=== PATIENT | male | born 1940 | race Caucasian/White ===

== ENCOUNTER → 2017-09-09 15:25 | Outpatient (CLI) | payer MEDICARE, OTHER, SELFPAY ==
--- NOTE | 2017-09-09 15:10 | LES_PTH ---
PATIENT: CRISTINO JONAS LOC: [facility] U#:[id number] AGE/SX: 84/M ROOM: RE09/09/[address]: Dr. Georges Agustin DO : 1940 BED: DIS: SPEC #: [id number] RECD: 09/09/17 17:28 STATUS: ABIMBOLA BRUCE #: [id number] ELIEZER: 09/09/17 15:[address]: Georges Agustin DEPT: SURGICAL PATHOLOGY RECD BY: Helder Paez Tissues: Skin, NOS Procedures: Surgery Specimen Level IV HEADER OPERATION: Punch biopsy atypical nevus PRE-OP DIAGNOSIS: Changing nevus TISSUE SUBMITTED: 3 mm punch atypical nevus MICROSCOPIC DIAGNOSIS Atypical nevus, punch biopsy: Consistent with seborrheic keratosis with focal features of cutaneous horn. Negative for malignancy. See comment. DOC:darion 09/11/17 COMMENT Clinical correlation and appropriate follow up are necessary. MICROSCOPIC DESCRIPTION Slides are reviewed. GROSS DESCRIPTION Received is one container labeled with the patient's name and not further designated. The specimen consists of a piece of hui-white skin measuring 0.3 x 0.3 x 0.1 cm. The specimen is totally submitted in one cassette. / SJ:rg 09/10/17 TC:1 CPT: 33217
== END ==
PROVIDERS: Family Provider Family Medicine; PCP Family Medicine; Visit Provider Family Medicine
DX: D22.9 Melanocytic nevi, unspecified (principal)
CPT/HCPCS: 88305

== ENCOUNTER → 2017-10-03 09:45 | Outpatient (CLI) | payer MEDICARE, OTHER, SELFPAY ==
[2017-10-03 12:16] LABS: Absolute Lymphocyte Count 1.26 X10^3/ul (0.83-4.51); Absolute Neutrophil Count 3.6 X10^3/uL (2.0-7.7); Basophil# 0.03 X10^3/uL; Basophil% 0.5 % (0-1); Eosinophil# 0.31 X10^3/uL; Eosinophils% 5.3 % (0-5); Hematocrit 39.8 % (40-54); Hemoglobin 13.5 g/dl (13.0-16.5); Lymphocyte # 1.26 X10^3/ul (4.0); Lymphocyte % 21.7 % (19-41); Mean Corp Hgb Conc 33.9 g/gl (32-36); Mean Corpuscular Hgb 29.7 pg (27.0-32.0); Mean Corpuscular Volume 87.7 fL (80-94); Mean Platelet Vol. 10.7 fl (6.2-12.0); Monocyte# 0.56 X10^3/uL; Monocyte% 9.6 % (0-10); Neutrophil # 3.64 X10^3/uL (2.7-7.7); Neutrophil % 62.7 % (47-70); Platelet Count 195 K/mm3 (150-450); Red Blood Count 4.54 M/mm3 (4.6-6.2); White Blood Count 5.8 K/mm3 (4.4-11.0)
[2017-10-03 12:23] LABS: ALB/GLOB Ratio 0.9 RATIO (0.9-2.4); AST(SGOT) 22 U/L (15-37); Alanine Aminotransfer ALT/SGPT 34 U/L (16-61); Albumin, Serum 3.4 g/dL (3.2-5.0); Alkaline Phosphatase 76 U/L (45-117); Anion Gap 7 (5-15); BUN 25 mg/dL (7-18); BUN/Creat Ratio 15.6 RATIO (10-20); Calcium,Total 8.3 mg/dL (8.5-10.1); Chloride 109 mmol/L (98-107); Cholesterol 123 mg/dL (200); EST Glomerular Filtration Rate 45 mL/min (>60); Est Glom Filt Rate - Afr Amer 54 mL/min (>60); Globulin 3.7 g/dL (2.2-4.2); Glucose 98 mg/dL (74-106); High Density Lipoprotein 36 mg/dL; PSA,Total - Annual Screen 2.37 ng/mL (0.00-4.00); Potassium 4.1 mmol/L (3.5-5.1); Protein, Total 7.1 g/dL (6.4-8.2); Sodium Level 142 mmol/L (136-145); Triglycerides 76 mg/dL; Very Low Density Lipoprotein 15 mg/dL (5-40)
[2017-10-03 12:28] LABS: POSITIVE COUNT NO; POSITIVE DIFFERENTIAL NO; POSITIVE MORPHOLOGY NO
== END ==
PROVIDERS: Family Provider Family Medicine; PCP Family Medicine; Visit Provider Family Medicine
DX: Z00.01 Encounter for general adult medical examination with abnormal findings (principal); E78.5 Hyperlipidemia, unspecified; I12.9 Hypertensive chronic kidney disease with stage 1 through stage 4 chronic kidney disease, or unspecified chronic kidney disease; N18.3 Chronic kidney disease, stage 3 (moderate); Z12.5 Encounter for screening for malignant neoplasm of prostate
CPT/HCPCS: 36415; 80053; 80061; 84153; 85025; G0103

== ENCOUNTER → 2017-12-09 10:41 | Outpatient (CLI) | payer MEDICARE, OTHER, SELFPAY ==
--- NOTE | 2017-12-09 10:47 | STEWCON_ITS ---
Reason For Study: CAD Stress Results Protocol: Dobutamine Stress Echo Maximum Predicted HR: 143 bpm Target HR: 122 bpm% Maximum Pre dicted HR: 89 % DurationHeart Rate Stage (mm:ss) (bpm) BPCom ment Baseline 62 143/59 Definity 2.5 ML Diluted Given; No Chest Pain DSE 10 MCG 3:00 67 171/67No Chest Pain DSE 20 MCG 3:16 12 7 182/80No Chest Pain Recovery 76 148/74 No Chest Pain Stress Duration: 6:16 mm:ss Maximum Stress HR: 127 bpmM ETS: 1 Baseline Echocardiogram Findings The estimated ejection fraction is 65 %. Stress Echo Wall motion Data Resting WMIntermediate WMStress WM Resting Wall Motion Wall Motion Stress No regional wall motion No regional wall motion abnormalities noted. abnormalities noted. EKG Data The baseline ECG demonstrates normal sinus rhythm with at rate of _ beats per minute. The patient was titrated from 10 mcg to a maximum of 20 mcg of dobutamine during the stress. The maximum heart rate attained was 136 beats per minute. This was 95% of maximum predicted heart rate. During dobutamine infusion, there were no ST or T wave changes noted to suggest ischemia. No clinical angina was noted. Interpretation Summary The study was technically difficult. Contrast injection was performed. The estimated ejection fraction is 65 %. The patient was titrated from 10 mcg to a maximum of 20 mcg of dobutamine during the stress. Normal, adequate, dobutamine echocardiogram. Negative for ischemia by EKG and echocardiographic criteria. No anginal symptoms noted. No arrhythmias noted. Appropriate blood pressure response to dobutamine. Final LVEF is 75%. Decreased sensitivity due to poor echo windows requiring Definity enhancement. No complications. Ordering Physician: Kathleen Lewis Referring Physician: Ariel Middleton Performed By: [place], CLIVE, RVT
--- NOTE | 2017-12-09 10:47 | CDU_ITS ---
Reason For Study: Dizziness Rt. Velocities/BP Lt. Velocities/BP Prox CCA 105/15 cm/sec. Prox CCA 154/22 cm/sec. Mid CCA 90/19 cm/sec. Mid CCA 80/16 cm/sec. Dist CCA 73/15 cm/sec. Dist CCA 99/15 cm/sec. Prox ICA 83/26 cm/sec. Prox ICA 93/31 cm/sec. Mid ICA 75/22 cm/sec. Mid ICA 99/32 cm/sec. Dist ICA 93/34 cm/sec. Dist ICA 73/24 cm/sec. Rt. ICA/CCA = 1.03. Lt. ICA/CCA = 1.24. Prox ECA 148/17 cm/sec. Prox ECA 133/12 cm/sec. Rt. Vert. 60/13 cm/sec. Lt. Vert. 72/15 cm/sec. Right Extracranial There is homogeneous, smooth atherosclerotic plaque noted in the right common carotid artery. There is heterogeneous, smooth atherosclerotic plaque noted in the right internal carotid artery. There is homogeneous, smooth atherosclerotic plaque noted in the right external carotid artery. Antegrade flow is noted in the right vertebral artery. Left Extracranial There is homogeneous, smooth atherosclerotic plaque noted in the left common carotid artery. There is homogeneous, smooth atherosclerotic plaque noted in the left internal carotid artery. There is intimal thickening but no significant atherosclerotic plaque noted in the left external carotid artery. Antegrade flow is noted in the left vertebral artery. Procedure Carotid Duplex 11063. Exam performed in department. Interpretation Summary Mild (<50%) stenosis right extracranial internal carotid. Mild (<50%) stenosis left extracranial internal carotid. Flow within the vertebral arteries is antegrade bilaterally. Ordering Physician: Kathleen Lewis Referring Physician: Kathleen Lewis Performed By: Kenia Schuster, CLIVE, RVT
== END ==
PROVIDERS: Family Provider Internal Medicine; PCP Internal Medicine; Visit Provider Internal Medicine
DX: R42 Dizziness and giddiness (principal); I25.10 Atherosclerotic heart disease of native coronary artery without angina pectoris
CPT/HCPCS: 93017; 93350; 93880; J7030; Q9957; A4216; C8928

== ENCOUNTER 2018-01-20 10:00 | Outpatient (RCR) | payer MEDICARE, OTHER, SELFPAY ==
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
--- NOTE | 2018-05-14 14:12 | HP.PT.NRP ---
HP - Discharge Summary (1) - Patient Information CRISTINO JONAS was seen in my office for initial evaluation on 12/23/17. The following Plan of Care was established for this patient: Initial Frequency: 1x/Week Initial Duration: 4 Weeks - Anticipated Interventions Patient/Client Instruction: Educate patient on: Condition, Plan of Care For the Purpose of:: To decrease pain, To increase ROM, To improve muscle performance and motor function, To improve ability to perform ADL's, To increase tolerance to activity/condition/position, To improve ability of physical actions for home/community/work/leisure, To improve health of tissue, To decrease soft tissue restriction, To increase flexibility/ROM, To improve ability to perform tasks related to life management Therapeutic Exercise to Include: Strength training, Body mechanics, Postural training, Flexibilty training, Active ROM, Dynamic Lumbar Stabilization For the Purpose of:: To decrease pain, To increase ROM, To improve muscle performance and motor function, To improve ability to perform ADL's, To increase tolerance to activity/condition/position, To decrease level of supervision to perform tasks, To improve ability of physical actions for home/community/work/leisure, To improve gait and locomotor functions, To improve health of tissue, To decrease soft tissue restriction, To increase flexibility/ROM, To reduce risk of recurrence, To improve ability to perform tasks related to life management IF ES: Yes Cryotherapy (ice pack, ice massage): Yes Thermo therapy (hot pack): Yes Ultrasound (thermal/non thermal): Yes For the Purpose of:: To decrease pain, To increase ROM, To improve nutrient delivery to tissue, To increase oxygenation perfusion, To improve health of tissue, To decrease soft tissue restriction, To increase flexibility/ROM, To improve tolerance to ADL's This patient was last seen in our office 01/20/18. Pertinent comments regarding their Physical therapy will appear below: Patient seen for PT for leg pain for ROM/STRNGTH ,DLS for HEP thus is d/c. At this point I will be discontinuing this patient from physical therapy. I would be happy to see this patient again in the future if found appropriate by the physician. Thank you! Virgil Alczaar, PT, Cert MDT, OCS
== END 2018-01-20 19:00 | disposition home or self-care (01) ==
LOC: PT 10:00
PROVIDERS: Family Provider Internal Medicine; PCP Internal Medicine; Visit Provider Internal Medicine
DX: M79.606 Pain in leg, unspecified (principal)
CPT/HCPCS: 97035; 97110; 97162

== ENCOUNTER → 2018-06-06 12:32 | Outpatient (CLI) | payer MEDICARE, OTHER, SELFPAY ==
--- NOTE | 2018-06-06 12:38 | US_ITS ---
STUDY: RENAL ULTRASOUND - COMPLETE REASON FOR EXAM: Male, 77 years old. Renal insufficiency TECHNIQUE: Ultrasound evaluation of the kidneys was performed with real-time and static adan-scale imaging. COMPARISON: 01/04/2015 FINDINGS: RIGHT KIDNEY: Normal location of the right kidney, which is normal in size. The right kidney measures 10.2 x 4.1 x 5.1 cm. There is diffuse thinning of the renal cortex. The renal cortex measures 1.0 cm. There is no right renal mass or cyst. There are no right renal calculi. There is no right hydronephrosis. DISTAL RIGHT URETER: There is non-visualization of the distal right ureter. There is no demonstrated right ureterovesical junction calculus. There is no demonstrated right ureteral jet. LEFT KIDNEY: Normal location of the left kidney, which is normal in size. The left kidney measures 11.9 x 4.5 x 5.4 cm. 52 The renal cortex measures 1.3 cm. There is no left renal mass or cyst. There are no left renal calculi. There is no left hydronephrosis. DISTAL LEFT URETER: There is non-visualization of the distal left ureter. There is no demonstrated left ureterovesical junction calculus. There is no demonstrated left ureteral jet. Prostate is enlarged measuring 5.9 x 5.5 x 4.6 cm (77 mL). BLADDER: The urinary bladder is not well-distended. There are no demonstrated bladder calculi. US/Kidney and Bladder IMPRESSION: 1. No hydronephrosis. No shadowing calculi on the current exam. 2. Bilateral renal cortical thinning compatible with history of bilateral chronic kidney disease, renal insufficiency. Overall similar since prior study. 3. Prostatomegaly. Electronically Signed: Arnaldo Moore MD at 7:58 EST , Service support ,
== END ==
PROVIDERS: Family Provider Internal Medicine; PCP Internal Medicine; Referring Provider Internal Medicine; Visit Provider Internal Medicine
DX: N28.9 Disorder of kidney and ureter, unspecified (principal)
CPT/HCPCS: 76770

== ENCOUNTER → 2018-06-16 07:50 | Outpatient (CLI) | payer MEDICARE, OTHER, SELFPAY ==
--- NOTE | 2018-06-16 07:54 | RDU_ITS ---
Reason For Study: Renal Insufficiency Right Renal Artery Left Renal Artery Right renal artery ostium 187/36.7 Left renal artery ostium 139/26.9 RSV/EDV. PSV/EDV. Right renal artery proximal Left renal artery proximal PSV/EDV 147/39.1 PSV/EDV. 154/34.2 . Right renal artery mid 181/26.9 Left renal artery mid 118/30.1 PSV/EDV. PSV/EDV . Right renal artery distal 121/28.3 Left renal artery distal 73.9/17.7 PSV/EDV. PSV/EDV. Right RAR 2.13. Left RAR 1.76. Right Renal Parenchyma Left Renal Parenchyma Upper Pole Medula 30.4/6.67 Left upper pole medulla 24.3/8.15 PSV/EDV. PSV/EDV . Right upper pole medulla EDR 0.22 . Left upper pole medulla EDR 0.34 . Right upper pole medulla R.I. Left upper pole medulla R.I. 0.66 . 0.78 . UP Cortex 21.5/4.07 PSV/EDV. Upper Jimmie Cortx 18.3/4.26 PSV/EDV. Left upper pole cortex EDR 0.19 . Right upper pole cortex EDR 0.23 . Left upper pole cortex R.I. 0.81 . Right upper pole cortex R.I. 0.77 . Left lower Pole medulla 24.3/6.48 Right lower Pole medulla 24.4/5.93 PSV/EDV . PSV/EDV . Left lower pole medulla EDR 0.27 . Right lower pole medulla EDR 0.24 . Left lower pole medulla R.I. 0.73 . Right lower pole medulla R.I. Lower Pole Cortx 18.9/4.81 PSV/EDV. 0.76 . Left lower pole cortex EDR 0.25 . Lower Pole Cortex 16.3/3.89 Left lower pole cortex R.I. 0.75 . PSV/EDV. Left Renal Hilar Right lower pole cortex EDR 0.24 . LT Hilar avg 44.3/13.8 PSV/EDV . Right lower pole cortex R.I. 0.76 . Left hilar acceleration time 44 Right Renal Hilar m/sec. Right Hilar avg 32.4/10.1 PSV/EDV. Left Renal Dimensions Right hilar acceleration time 29 Left kidney size 11.2 cm . m/sec. Left cortical dimension 1.21 cm . Right Renal Dimensions Right kidney size 10.8 cm . Right cortical dimension 1.31 cm . Aorta Proximal abdominal aorta 1.74 x 1.74 cm . Proximal abdominal aorta peak systolic velocity is 87.6 cm/sec . Distal abdominal aorta 1.51 x 1.69 cm . Distal abdominal aorta peak systolic velocity is 113 cm/sec . Interpretation Summary Dimensions of the intra-abdominal aorta appear normal, without evidence of aneurysmal dilatation. Right ostial and mid-renal artery velocities are slightly elevated. Left renal artery velocities are normal. Acceleration times are normal bilaterally. Renal-aortic ratios are also bilaterally normal. There is no evidence of hemodynamically significant renal artery stenosis on either side. Renovascular resistance appears to be bilaterally elevated . Cortical dimensions are bilaterally normal. Kidneys appear normal in size bilaterally. Ordering Physician: Kathleen Lewis Referring Physician: Kathleen Lewis Performed By: Gold Hoff RVT and Student
== END ==
PROVIDERS: Family Provider Internal Medicine; PCP Internal Medicine; Referring Provider Internal Medicine; Visit Provider Internal Medicine
DX: I10 Essential (primary) hypertension (principal); N28.9 Disorder of kidney and ureter, unspecified
CPT/HCPCS: 93975